=== PATIENT | female | born 1980 | race Caucasian/White ===

== ENCOUNTER 2016-10-31 03:41 | Emergency (ER) | payer MEDICAID ==
[~2016-10-31] VITALS: Ht 170.2 cm; Wt 107.9 kg
[2016-10-31] MEDS ORDERED: ONDANSETRON 2MG/ML, 2ML IVPush ONE (04:00)
[2016-10-31] MEDS ORDERED: SODIUM CHLORIDE 0.9% 1,000ML IVBOLUS ONE (04:00)
[2016-10-31] MEDS ORDERED: MORPHINE SULFATE 4 MG/ML, 1ML ONE ×2 (04:04→05:18)
[2016-10-31] MEDS: MORPHINE SULFATE 4 MG/ML, 1ML IVPush PRN ×2 (04:19→05:40)
[2016-10-31 04:26] LABS: ASPARTATE AMINO TRANSFERASE 18 U/L (15-37); BLOOD UREA NITROGEN 10 mg/dL (7-18)
[2016-10-31] MEDS ORDERED: OMNIPAQUE 350 MG/ML, 100ML BOTTLE ONE (06:06)
[2016-10-31 07:03] LABS: HCG UR OBC PASS
[2016-10-31 07:18] VITALS: BP 112/77
== END 2016-10-31 07:55 | disposition home or self-care (01) ==
LOC: ED 07:01
DX: R10.13 Epigastric pain (principal); R10.12 Left upper quadrant pain; Z88.8 Allergy status to other drugs, medicaments and biological substances
CPT/HCPCS: 36415; 74177; 80053; 81001; 81025; 83605; 83690; 84145; 85025; 87040; 87086; 93005; 96361; 96374; 96376; 99285; J7030; Q9967

== ENCOUNTER 2019-07-04 14:32 | Emergency (ER) | payer SELFPAY ==
[~2019-07-04] VITALS: Ht 172.7 cm; Wt 71.1 kg
[2019-07-04 15:25] LABS: BASOPHILS # (AUTO) 0.04 x10^3/uL (0-0.1); BASOPHILS % (AUTO) 1 % (0-1); EOSINOPHILS % (AUTO) 2 % (1-7); LYMPHOCYTES # (AUTO) 2.79 x10^3/uL (1-3.4); LYMPHOCYTES % (AUTO) 32 % (22-44); MD NO; MEAN CORPUSCULAR HGB CONC 33.3 g/dL (32.4-35.8); MEAN CORPUSCULAR VOLUME 93.2 fL (80-100); MEAN PLATELET VOLUME 7.7 fL (7.4-10.4); MONOCYTES # (AUTO) 0.58 x10^3/uL (0.2-0.8); MONOCYTES % (AUTO) 7 % (2-9); NEUTROPHILS # (AUTO) 5.21 x10^3/uL (1.8-6.8); NEUTROPHILS % (AUTO) 59 % (42-75); PLATELET COUNT 346 x10^3/uL (130-400); RED BLOOD COUNT 4.73 x10^6/uL (3.82-5.3); RED CELL DISTRIBUTION WIDTH 13.5 % (9.6-15.2)
[2019-07-04 15:34] LABS: RAPID INFLUENZA A Negative (Negative); RAPID INFLUENZA B Negative (Negative)
[2019-07-04 15:34] LABS: ALANINE AMINOTRANSFERASE 14 U/L (12-78); ALBUMIN 3.3 g/dL (3.4-5.0); ANION GAP 7 mmol/L (5-15); CALCIUM 9.1 mg/dL (8.5-10.1); CHLORIDE 106 mmol/L (98-107); CREATININE 0.72 mg/dL (0.55-1.02)
[2019-07-04 15:36] LABS: ALKALINE PHOSPHATASE 66 U/L (45-117); BILIRUBIN,TOTAL 0.4 mg/dL (0.2-1.0); TOTAL PROTEIN 7.4 g/dL (6.4-8.2)
--- NOTE | 2019-07-04 17:22 | NUR ---
CYTOPATHOLOGIST: PT WALKED BY TO ROOM BY CIARA RAMIREZ. STEADY UPON AMBULATION. NAD NOTED.
--- NOTE | 2019-07-04 17:48 | NUR ---
PT C/O GENERALIZED FEELING UNWELL X1 MONTH, WITH DECREASED APPETITE. PERIODIC DIARRHEA. CONNECTED TO MONITORING. CALL LIGHT IN REACH.
[2019-07-04 18:13] VITALS: BP 114/67
== END 2019-07-04 18:49 | disposition home or self-care (01) ==
LOC: ED 18:43
DX: K05.00 Acute gingivitis, plaque induced (principal); L01.01 Non-bullous impetigo; H92.01 Otalgia, right ear; Z87.891 Personal history of nicotine dependence
CPT/HCPCS: 36415; 71046; 80053; 85025; 87400; 99284

== ENCOUNTER 2020-01-30 01:17 | Emergency (ER) | payer MEDICAID ==
[~2020-01-30] VITALS: Ht 172.7 cm; Wt 72.7 kg
[2020-01-30] MEDS ORDERED: ACETAMINOPHEN 500 MG TABLET ONE (01:56)
[2020-01-30] MEDS ORDERED: ACETAMINOPHEN 500 MG TABLET PO ONE (02:00)
[2020-01-30 02:01] LABS: MICROSCOPIC INDICATED
[2020-01-30] MEDS ORDERED: CEFTRIAXONE PMX 1GM/50ML 50 ML ONE (02:13)
[2020-01-30 02:26] LABS: MEAN CORPUSCULAR HEMOGLOBIN 31.8 pg (27.0-34.8); MEAN CORPUSCULAR HGB CONC 33.3 g/dL (32.4-35.8); MEAN CORPUSCULAR VOLUME 95.4 fL (80-100); MEAN PLATELET VOLUME 7.9 fL (7.4-10.4); PLATELET COUNT 233 x10^3/uL (130-400); RED BLOOD COUNT 4.83 x10^6/uL (3.82-5.3)
[2020-01-30] MEDS ORDERED: CEFTRIAXONE PMX 1GM/50ML 50 ML IV ONE (02:30)
[2020-01-30] MEDS ORDERED: SODIUM CHLORIDE 0.9% 1,000ML IVBOLUS ONE ×2 (02:30→03:00)
[2020-01-30 02:35] LABS: ALANINE AMINOTRANSFERASE 22 U/L (12-78); ALBUMIN 3.3 g/dL (3.4-5.0); ANION GAP 8 mmol/L (5-15); CALCIUM 9.5 mg/dL (8.5-10.1); CHLORIDE 100 mmol/L (98-107); CREATININE 0.82 mg/dL (0.55-1.02)
[2020-01-30 02:38] LABS: ALKALINE PHOSPHATASE 85 U/L (45-117); BILIRUBIN,TOTAL 0.5 mg/dL (0.2-1.0); TOTAL PROTEIN 8.1 g/dL (6.4-8.2)
[2020-01-30 03:17] LABS: MD YES
[2020-01-30 03:19] LABS: <PLATELET ESTIMATE> ADEQUATE; <PLT MORPHOLOGY> NORMAL PLT MORPH; <RBC MORPHOLOGY> NORMAL; BAND#(MANUAL) 0.31 x10^3/uL; BANDS%(MANUAL) 2 % (0-7); LYMPH#(MANUAL) 0.16 x10^3/uL (1-3.4); LYMPHS% (MANUAL) 1 % (22-44); MONOS#(MANUAL) 0.47 x10^3/uL (0.3-2.7); MONOS% (MANUAL) 3 % (2-9); SEG#(MANUAL) 14.76 x10^3/uL (1.8-6.8); SEGS% (MANUAL) 94 % (42-75)
[2020-01-30 05:19] VITALS: BP 104/61
[2020-01-31] MEDS ORDERED: VENL37.58 PO (09:38)
[2020-01-31] MEDS ORDERED: ARIP10TA33 PO (09:38)
[2020-01-31] MEDS ORDERED: LAMO100T5 PO (09:39)
== END 2020-01-30 06:10 | disposition home or self-care (01) ==
LOC: ED 02:36
DX: N39.0 Urinary tract infection, site not specified (principal); N10 Acute pyelonephritis; R50.9 Fever, unspecified; R00.0 Tachycardia, unspecified
CPT/HCPCS: 36415; 80053; 81001; 83605; 84145; 85025; 87040; 87077; 87086; 93005; 96361; 96365; 99284; J0696; J7030; 87186

== ENCOUNTER 2020-01-31 04:45 | Inpatient (IN) | payer MEDICAID ==
[~2020-01-31] VITALS: Ht 172.7 cm; Wt 74.8 kg
--- NOTE | 2020-01-31 05:24 | NUR ---
39/F seen here yesterday in ER. Pt experiencing fever, diarrhea, severe H/A over past week. No improvement. Blood cultures drawn during previous visit.
[2020-01-31] MEDS ORDERED: PROCHLORPERAZINE 5 MG/ML, 2ML IVPush ONE (05:30)
[2020-01-31] MEDS ORDERED: ACETAMINOPHEN 500 MG TABLET PO ONE (05:30)
[2020-01-31] MEDS ORDERED: DIPHENHYDRAMINE 50 MG/ML, 1ML IVPush ONE (05:30)
[2020-01-31] MEDS ORDERED: SODIUM CHLORIDE 0.9% 1,000ML IVBOLUS ONE ×2 (05:30→07:30)
[2020-01-31] MEDS ORDERED: SODIUM CHLORIDE FLUSH 10ML SYR IVF ONE (05:30)
[2020-01-31 06:11] LABS: ALBUMIN 3.1 g/dL (3.4-5.0); ANION GAP 9 mmol/L (5-15); CALCIUM 9.3 mg/dL (8.5-10.1); CHLORIDE 103 mmol/L (98-107)
[2020-01-31 06:13] LABS: ALANINE AMINOTRANSFERASE 28 U/L (12-78); ALKALINE PHOSPHATASE 82 U/L (45-117); BILIRUBIN,TOTAL 0.4 mg/dL (0.2-1.0); TOTAL PROTEIN 7.9 g/dL (6.4-8.2)
[2020-01-31] MEDS ORDERED: CEFTRIAXONE PMX 1GM/50ML 50 ML IV ONE (06:30)
[2020-01-31 06:33] LABS: BASOPHILS # (AUTO) 0.02 x10^3/uL (0-0.1); BASOPHILS % (AUTO) 0 % (0-1); EOSINOPHILS # (AUTO) 0.05 x10^3/uL (0-0.4); EOSINOPHILS % (AUTO) 0 % (1-7); LYMPHOCYTES # (AUTO) 1.77 x10^3/uL (1-3.4); LYMPHOCYTES % (AUTO) 14 % (22-44); MD NO; MEAN CORPUSCULAR HEMOGLOBIN 31.5 pg (27.0-34.8); MEAN CORPUSCULAR HGB CONC 32.9 g/dL (32.4-35.8); MEAN CORPUSCULAR VOLUME 95.5 fL (80-100); MEAN PLATELET VOLUME 7.6 fL (7.4-10.4); MONOCYTES # (AUTO) 1.24 x10^3/uL (0.2-0.8); MONOCYTES % (AUTO) 10 % (2-9); NEUTROPHILS # (AUTO) 9.66 x10^3/uL (1.8-6.8); NEUTROPHILS % (AUTO) 76 % (42-75); PLATELET COUNT 256 x10^3/uL (130-400); RED BLOOD COUNT 4.56 x10^6/uL (3.82-5.3); RED CELL DISTRIBUTION WIDTH 13.3 % (9.6-15.2)
[2020-01-31] MEDS ORDERED: SODIUM CHLORIDE 0.9% 1,000 ML IV ONE (06:48)
[2020-01-31] MEDS ORDERED: SODIUM CHLORIDE FLUSH 10ML SYR IVF PRN (07:00)
--- NOTE | 2020-01-31 07:05 | NUR ---
Report given to MUKUND Murry
--- NOTE | 2020-01-31 07:21 | NUR ---
Clarrified [facility] MDs that Blood Cultures did not need to be drawn prior to ABX being given d/t Blood Cultures having been drawn during pervious ER visit within 24 hours. MD robison pt to be spetic. pt drowsy, does wake to verbal stumli but quickly falls back asleep.
--- NOTE | 2020-01-31 07:44 | NUR ---
REPORT GIVEN TO ALEJANDRA DUVAL FOR ROOM [id number]
[2020-01-31 08:50] VITALS: BP 110/68
[2020-01-31] MEDS ORDERED: VENL37.58 PO (09:38)
[2020-01-31] MEDS ORDERED: ARIP10TA33 PO (09:38)
[2020-01-31] MEDS ORDERED: LAMO100T5 PO (09:39)
[2020-01-31] MEDS: CEFTRIAXONE PMX 2GM/50ML 50 ML IV SCH ×2 (11:13→22:17)
[2020-01-31] MEDS: BUTALB/APAP/CAFFEINE 50MG/325MG/40MG PO PRN ×2 (12:39→20:25)
[2020-01-31 14:34] VITALS: BP 127/64
[2020-01-31] MEDS: VENLAFAXINE XR 37.5MG CAP.ER.24H PO SCH (14:48)
[2020-01-31] MEDS: LAMOTRIGINE 100 MG TABLET PO SCH (14:48)
[2020-01-31] MEDS: ARIPIPRAZOLE 10 MG TABLET PO SCH (14:48)
[2020-01-31] MEDS: DIPHENHYDRAMINE 25 MG CAPSULE PO PRN (16:26)
[2020-01-31] MEDS: ENOXAPARIN 40 MG/0.4 ML SQ SCH (16:29)
[2020-01-31 19:18] VITALS: BP 97/61
[2020-02-01 01:30] VITALS: BP 99/57
[2020-02-01] MEDS: BUTALB/APAP/CAFFEINE 50MG/325MG/40MG PO PRN ×2 (04:43→18:16)
[2020-02-01 05:58] LABS: CLOSTRIDIUM DIFFICILE ANTIGEN NEGATIVE; CLOSTRIDIUM DIFFICILE TOXIN NEGATIVE (Negative)
[2020-02-01 08:05] VITALS: BP 108/73
[2020-02-01] MEDS ORDERED: ARIPIPRAZOLE 10 MG TABLET PO SCH (09:00)
[2020-02-01] MEDS ORDERED: LAMOTRIGINE 200 MG TABLET PO SCH (09:00)
[2020-02-01] MEDS ORDERED: VENLAFAXINE XR 37.5MG CAP.ER.24H PO SCH (09:00)
[2020-02-01] MEDS: LAMOTRIGINE 100 MG TABLET PO SCH (10:06)
[2020-02-01] MEDS: CEFTRIAXONE PMX 2GM/50ML 50 ML IV SCH ×2 (10:07→23:02)
[2020-02-01] MEDS: ARIPIPRAZOLE 10 MG TABLET PO SCH (10:07)
[2020-02-01] MEDS: VENLAFAXINE XR 37.5MG CAP.ER.24H PO SCH (10:07)
[2020-02-01] MEDS: DIPHENHYDRAMINE 25 MG CAPSULE PO PRN (11:56)
[2020-02-01 14:09] VITALS: BP 106/72
[2020-02-01] MEDS: ENOXAPARIN 40 MG/0.4 ML SQ SCH (15:43)
[2020-02-01 19:17] VITALS: BP 108/71
[2020-02-02 00:57] VITALS: BP 109/73
[2020-02-02 05:24] LABS: ALBUMIN 2.6 g/dL (3.4-5.0); ANION GAP 7 mmol/L (5-15); CALCIUM 9.1 mg/dL (8.5-10.1); CHLORIDE 107 mmol/L (98-107); CREATININE 0.55 mg/dL (0.55-1.02)
[2020-02-02] MEDS: BUTALB/APAP/CAFFEINE 50MG/325MG/40MG PO PRN (05:40)
[2020-02-02 05:42] LABS: BASOPHILS # (AUTO) 0.03 x10^3/uL (0-0.1); BASOPHILS % (AUTO) 0 % (0-1); EOSINOPHILS # (AUTO) 0.15 x10^3/uL (0-0.4); EOSINOPHILS % (AUTO) 2 % (1-7); LYMPHOCYTES # (AUTO) 2.68 x10^3/uL (1-3.4); LYMPHOCYTES % (AUTO) 32 % (22-44); MD NO; MEAN CORPUSCULAR HEMOGLOBIN 31.1 pg (27.0-34.8); MEAN CORPUSCULAR HGB CONC 32.8 g/dL (32.4-35.8); MEAN CORPUSCULAR VOLUME 94.9 fL (80-100); MEAN PLATELET VOLUME 7.5 fL (7.4-10.4); MONOCYTES % (AUTO) 11 % (2-9); NEUTROPHILS # (AUTO) 4.72 x10^3/uL (1.8-6.8); NEUTROPHILS % (AUTO) 56 % (42-75); PLATELET COUNT 311 x10^3/uL (130-400); RED BLOOD COUNT 3.88 x10^6/uL (3.82-5.3); RED CELL DISTRIBUTION WIDTH 13.3 % (9.6-15.2)
[2020-02-02] MEDS: VENLAFAXINE XR 37.5MG CAP.ER.24H PO SCH (07:59)
[2020-02-02] MEDS: ARIPIPRAZOLE 10 MG TABLET PO SCH (07:59)
[2020-02-02] MEDS: LAMOTRIGINE 100 MG TABLET PO SCH (08:00)
[2020-02-02 09:59] VITALS: BP 110/74
[2020-02-02] MEDS: DIPHENHYDRAMINE 25 MG CAPSULE PO PRN (11:04)
[2020-02-02] MEDS: CEFTRIAXONE PMX 2GM/50ML 50 ML IV SCH (11:05)
[2020-02-02] MEDS ORDERED: BUTA-177 PO (11:40)
[2020-02-02] MEDS ORDERED: CEFD300C37 PO (11:40)
== END 2020-02-02 15:16 | disposition home or self-care (01) | DRG 872 ==
LOC: ED 05:55 → EDIP 06:55 → 3N 08:00
PROVIDERS: ADMIT Family Medicine; ATTEND Family Medicine
DX: A41.9 Sepsis, unspecified organism (principal); B96.89 Other specified bacterial agents as the cause of diseases classified elsewhere; F12.90 Cannabis use, unspecified, uncomplicated; F17.210 Nicotine dependence, cigarettes, uncomplicated; F32.9 Major depressive disorder, single episode, unspecified; F41.1 Generalized anxiety disorder; G43.909 Migraine, unspecified, not intractable, without status migrainosus; N30.90 Cystitis, unspecified without hematuria
CPT/HCPCS: 36415; 71045; 80053; 80069; 83605; 83735; 84145; 85025; 87324; 96374; 96375; G0378; J0696; J1650; J0780; J1200; J7030; Q0163